=== PATIENT | male | born 1950 | race African-American/Black ===

== ENCOUNTER 2017-12-27 11:00 | Inpatient (IN) | payer MEDICARE, MEDICAID ==
[~2017-12-27] VITALS: Ht 185.4 cm; Wt 88.2 kg
[2017-12-27 12:01] LABS: BG BASE EXCESS 1.6 mmol/L (-2.0-2.0); BG CARBOXYHEMOGLOBIN 0.9 % (0.5-1.5); BG DEOXYHEMOGLOBIN 3.7 % (0.0-5.0); BG FRACTION INSPIRED OXYGEN 21; BG HCO3 ACT 26.4 mmol/L (22.0-26.0); BG METHEMOGLOBIN 0.4 % (0.0-1.5); BG OXYGEN SATURATION 96.3 % (92.0-98.5); BG PCO2 42.1 mmHg (35.0-45.0); BG PH 7.415 (7.350-7.450); BG PO2 82.2 mmHg (75.0-100.0); BG SAMPLE SITE RIGHT BRACHIAL; BG VENT MODE ROOM AIR
[2017-12-27] MEDS ORDERED: SODIUM CHLORIDE 0.9% 1,000 ML IV ONE (12:19)
[2017-12-27 12:26] LABS: BASOPHILS % 0.2 % (0.0-2.0); EOSINOPHILS % 0.5 % (0.0-5.0); HEMOGLOBIN. 15.3 g/dL (14.0-18.0); MEAN CORPUSCULAR HEMOGLOBIN 31.6 pg (28.0-32.0); MEAN CORPUSCULAR VOLUME 92.8 fL (80.0-94.0); MEAN PLATELET VOLUME 7.5 fl (7.4-10.4); MONOCYTES % 8.7 % (2.0-8.0); NEUTROPHILS % 73.6 % (40.0-76.0); PLATELET 219 x1000/uL (130-400); RED BLOOD CELL COUNT 4.85 mill/uL (4.7-6.1); RED CELL DISTRIBUTION WIDTH 13.9 % (11.6-14.6)
[2017-12-27 12:34] LABS: INR 1.1; PARTIAL THROMBOPLASTIN TIME 25.2 sec (23.4-31.0); PROTHROMBIN TIME 10.7 sec (9.1-11.1)
[2017-12-27 12:51] LABS: CHLORIDE 105 mEq/L (98-107)
[2017-12-27 13:00] LABS: ETHANOL BLOOD < 10 mg/dL
[2017-12-27 21:30] VITALS: BP 102/66
[2017-12-27] MEDS ORDERED: OLAN2.5T3 PO (22:09)
[2017-12-27] MEDS ORDERED: MIRT15TA PO (22:09)
[2017-12-27] MEDS ORDERED: DOCU-138 PO (22:09)
[2017-12-27] MEDS ORDERED: FLUO10CA25 PO (22:09)
[2017-12-27] MEDS ORDERED: SODIUM CHLORIDE 0.9% 1,000 ML IV SCH (22:18)
[2017-12-27] MEDS ORDERED: IPRATROPIUM/ALBUTEROL 0.5-3(2.5)MG/3ML NEB INH PRN (22:30)
[2017-12-27] MEDS ORDERED: CLONIDINE 0.1MG TABLET PO PRN (22:30)
[2017-12-27] MEDS ORDERED: DOCUSATE SODIUM 100MG CAPSULE PO PRN (22:30)
[2017-12-27] MEDS ORDERED: ONDANSETRON HCL 4MG/2ML INJ IV PRN (22:30)
[2017-12-27] MEDS ORDERED: MAGNESIUM/ALUMINUM HYDROXIDE/SIMETHICONE 30ML UDC PO PRN (22:30)
[2017-12-27] MEDS ORDERED: ACETAMINOPHEN 325MG TABLET PO PRN (22:30)
[2017-12-27] MEDS ORDERED: GUAIFENESIN 200MG/10ML SUGAR FREE UDC PO PRN (22:30)
[2017-12-27] MEDS ORDERED: ENOXAPARIN 40MG/0.4ML SYR SUBCUT SCH (22:30)
[2017-12-27] MEDS ORDERED: NA PHOS,M-B/NA PHOS,DI-BA ENEMA 118ML PR PRN (22:30)
[2017-12-27] MEDS ORDERED: ACETAMINOPHEN 650MG/20.3ML UDC GT PRN (22:30)
[2017-12-27] MEDS ORDERED: ACETAMINOPHEN 650MG SUPP PR PRN (22:30)
[2017-12-27] MEDS ORDERED: HYDROCODONE/ACETAMINOPHEN 5/325MG TABLET PO PRN (22:30)
[2017-12-28] VITALS: BP_SYST 112; BP_SYST 120; BP_DIAS 60; BP_DIAS 65
[2017-12-28 04:00] VITALS: BP_SYST 102; BP_SYST 89; BP_SYST 95; BP_DIAS 57; BP_DIAS 64; BP_DIAS 65
[2017-12-28] MEDS: SODIUM CHLORIDE 0.9% INJ 3ML FLUSH IVF SCH ×3 (05:46→21:44)
[2017-12-28 07:26] LABS: BASOPHILS % 0.3 % (0.0-2.0); EOSINOPHILS % 1.2 % (0.0-5.0); HEMATOCRIT. 36.7 % (42.0-52.0); HEMOGLOBIN. 12.4 g/dL (14.0-18.0); LYMPHOCYTES % 34.4 % (20.0-50.0); MEAN CORPUSCULAR HEMOGLOBIN 30.9 pg (28.0-32.0); MEAN CORPUSCULAR VOLUME 91.5 fL (80.0-94.0); MEAN PLATELET VOLUME 7.7 fl (7.4-10.4); MONOCYTES % 13.4 % (2.0-8.0); NEUTROPHILS % 50.7 % (40.0-76.0); PLATELET 176 x1000/uL (130-400); RED BLOOD CELL COUNT 4.01 mill/uL (4.7-6.1); RED CELL DISTRIBUTION WIDTH 13.7 % (11.6-14.6)
[2017-12-28 08:00] VITALS: BP 99/57
[2017-12-28 08:13] LABS: CHLORIDE 105 mEq/L (98-107)
[2017-12-28 08:25] LABS: CREATINE KINASE 180 IU/L (39-308); CREATINE KINASE MB FRACTION 1.5 ng/mL (0.5-3.6); HDL CHOLESTEROL 65 mg/dL (40-59); LDL CHOLESTEROL 74 mg/dL (5-100)
[2017-12-28] MEDS: SODIUM CHLORIDE 0.9% 1,000 ML IV SCH ×2 (09:48→21:45)
[2017-12-28] MEDS: ENOXAPARIN 80MG/0.8ML SYR SUBCUT SCH ×2 (13:30→14:14)
[2017-12-28] MEDS ORDERED: IOHEXOL-350 100 ML BOTTLE ONE (15:05)
[2017-12-28 16:00] VITALS: BP_SYST 107; BP_SYST 90; BP_DIAS 45; BP_DIAS 62; BP_DIAS 69
[2017-12-28] MEDS: HYDROCODONE/ACETAMINOPHEN 10/325MG TABLET PO PRN (19:20)
[2017-12-28 20:00] VITALS: BP 152/65
[2017-12-28 21:19] LABS: CREATINE KINASE 224 IU/L (39-308); HDL CHOLESTEROL 78 mg/dL (40-59); LDL CHOLESTEROL 88 mg/dL (5-100); T4 FREE 0.86 ng/dL (0.76-1.46)
[2017-12-28] MEDS: APIXABAN 5 MG TABLET PO SCH (21:44)
[2017-12-28 22:00] VITALS: BP 103/61
[2017-12-29] VITALS (12 sets, daily range): BP systolic 90–165; BP diastolic 52–86
[2017-12-29 03:31] LABS: CLARITY URINE CLEAR (CLEAR); COLOR URINE YELLOW (YELLOW); KETONES URINE NEGATIVE (NEGATIVE); LEUKOCYTE ESTERASE URINE NEGATIVE (NEGATIVE); NITRITE URINE NEGATIVE (NEGATIVE); OCCULT BLOOD URINE NEGATIVE (NEGATIVE); PROTEIN URINE NEGATIVE (NEGATIVE); SPECIFIC GRAVITY URINE 1.016 (1.005-1.030); UROBILINOGEN URINE 0.2 E.U./dL (0.2-1.0)
[2017-12-29 03:45] LABS: *AMPHETAMINES SCREEN URINE NEGATIVE (NEGATIVE); *BARBITURATES SCREEN URINE NEGATIVE (NEGATIVE); *BENZODIAZEPINES SCREEN URINE NEGATIVE (NEGATIVE); *COCAINE SCREEN URINE NEGATIVE (NEGATIVE)
[2017-12-29 03:46] LABS: CANNABINOID URINE SCREEN NEGATIVE (NEGATIVE); METHADONE URINE SCREEN NEGATIVE (NEGATIVE); OPIATES URINE SCREEN PRESUMTIVE POSITIVE (NEGATIVE); PHENCYCLIDINE URINE SCREEN NEGATIVE (NEGATIVE)
[2017-12-29] MEDS: HYDROCODONE/ACETAMINOPHEN 10/325MG TABLET PO PRN (04:52)
[2017-12-29] MEDS: SODIUM CHLORIDE 0.9% INJ 3ML FLUSH IVF SCH ×3 (05:42→22:29)
[2017-12-29] MEDS: APIXABAN 5 MG TABLET PO SCH ×2 (08:01→17:01)
[2017-12-29] MEDS: SODIUM CHLORIDE 0.9% 1,000 ML IV SCH (11:19)
[2017-12-30] VITALS (7 sets, daily range): BP systolic 96–134; BP diastolic 57–92
[2017-12-30] MEDS: SODIUM CHLORIDE 0.9% 1,000 ML IV SCH (02:14)
[2017-12-30] MEDS: SODIUM CHLORIDE 0.9% INJ 3ML FLUSH IVF SCH (06:36)
[2017-12-30] MEDS: APIXABAN 5 MG TABLET PO SCH (07:57)
[2017-12-30] MEDS ORDERED: APIX5TAB PO (11:53)
[2018-01-05] MEDS ORDERED: APIXABAN 5 MG TABLET PO SCH (09:00)
== END 2017-12-30 14:35 | disposition home or self-care (01) | DRG 175 ==
LOC: ER 11:00 → EDBEDREQ 11:21 → 8WST 13:53 → EDBEDREQTM 13:55 → EDBEDREQ 13:55 → ENRESERV 20:16 → 3WST 12-28 17:55
PROVIDERS: ADMIT Family Medicine; ATTEND Family Medicine
DX: I26.99 Other pulmonary embolism without acute cor pulmonale (principal); J96.00 Acute respiratory failure, unspecified whether with hypoxia or hypercapnia; J18.9 Pneumonia, unspecified organism; D68.59 Other primary thrombophilia; E78.5 Hyperlipidemia, unspecified; F20.9 Schizophrenia, unspecified; I10 Essential (primary) hypertension; F19.10 Other psychoactive substance abuse, uncomplicated; I95.1 Orthostatic hypotension; Z87.891 Personal history of nicotine dependence; Z91.19 Patient's noncompliance with other medical treatment and regimen; I69.320 Aphasia following cerebral infarction; Z79.899 Other long term (current) drug therapy
CPT/HCPCS: 36415; 36600; 71045; 71275; 78582; 80061; 80305; 82375; 82550; 82553; 82805; 83036; 83605; 83735; 83880; 84145; 84439; 84443; 84484; 85379; 93005; 93306; 93880; 93970; 96360; 96361; 99285; A9558; G0482; J1650; J7030; J7042; Q9967